=== PATIENT | female | born 1960 | race Two or more races ===

== ENCOUNTER 2016-10-03 11:08 | Emergency (ER) | payer MEDICAID ==
[~2016-10-03] VITALS: Ht 152.4 cm; Wt 70.0 kg
[2016-10-03] MEDS ORDERED: KETOROLAC 30MG/ML VIAL IV ONE (11:45)
[2016-10-03 11:52] VITALS: BP 122/74
== END 2016-10-03 12:33 | disposition home or self-care (01) ==
LOC: ER 12:24
DX: M54.9 Dorsalgia, unspecified (principal)
CPT/HCPCS: 96374; 99284; J1885